=== PATIENT | female | born 1945 | race Caucasian/White ===

== ENCOUNTER 2025-04-24 15:33 | Emergency (ER) | payer MEDICARE, SELFPAY ==
[2025-04-24 15:51] VITALS: BP 144/35; PULSE 63; RESP 16; TEMP 36.5; O2SAT 100
--- NOTE | 2025-04-24 16:17 | ED_ITS ---
HPI - Extremity Problem General Chief complaint: Extremity Problem,Nontraumatic Stated complaint: Left Foot Pain Time Seen by Provider: 04/24/25 16:00 Source: patient and RN notes reviewed Mode of arrival: ambulatory Limitations: no limitations History of Present Illness HPI Narrative: 79-year-old female presents [facility] complaining of wounds to her left foot. Patient has a history of CABG, peripheral vascular disease, coronary artery disease. Patient says over the last last 3 months she is reported wounds present to her toes. Patient reports she has poor circulation to her left leg from previous surgeries. Patient reports worsening redness and swelling to her foot over the last 3 weeks and reports her toes becoming very painful. Patient denies any numbness or tingling, fevers, body aches, chills, or any other symptoms. Patient said she cannot bear weight on her left foot to the pain in her toes. Related Data Allergies Allergy/AdvReac Type Severity Reaction Status Date / Time Penicillins Allergy Intermediate Vomiting Verified 04/24/25 18:55 Sulfa (Sulfonamide Allergy Intermediate Vomiting Verified 04/24/25 18:55 Antibiotics) Review of Systems Review of Systems: CONSTITUTIONAL: Denies fever, chills, or sweats. EYES: Denies visual changes, redness, or discharge. ENT: Denies rhinorrhea, congestion, sore throat, or otalgia. CARDIOVASCULAR: Denies chest pain, palpitations, or edema. RESPIRATORY: Denies cough or dyspnea. GASTROINTESTINAL: Denies abdominal pain, nausea, vomiting, or diarrhea. GENITOURINARY: Denies dysuria or hematuria. SKIN: Denies rash or itching. Positive for wounds, foot swelling. MUSCULOSKELETAL: Denies back pain, joint pain, or myalgia. Positive for toe. NEUROLOGIC: Denies headache, numbness, or weakness. PSYCHIATRIC: Denies anxiety or depression. All other systems reviewed are negative, except as documented in HPI. PMFSH Comments At the time of my signature, I reviewed and agree with the nursing past medical, surgical, social, and family history. There is no relevant family history pertinent to the patient complaint. Exam Narrative: GENERAL: This is a well-nourished, well-developed adult, in no apparent distress. They are non ill-appearing, nontoxic appearing. HEAD: normocephalic, atraumatic. EYES: Sclera clear/white. Conjunctiva normal. Vision is grossly intact. Extraocular movements intact EARS: External ears normal, Hearing grossly intact. NOSE: External nose normal THROAT: Mucous membranes moist, NECK: Neck supple, CARDIOVASCULAR: Regular rate and rhythm RESPIRATORY: Respiratory rate normal, respiratory effort nonlabored, no respiratory distress SKIN: warm, Dry, intact with no suspicious lesions or rash, good texture and turgor. NEURO: awake, alert, and oriented to person, place and time. There were no obvious focal neurologic abnormalities. EXTREMITIES: Left foot: It Is erythematous, left pedal pulse is palpable and weak. Skin is not blanchable. Multiples sores present to the patient 2nd plantar toe in between her 2nd and 3rd toe. It appears scabbed, with exudate present. Toes are tender to palpate. Swelling is pitting. Erythema extending up the left ankle. Sensation intact. Patient able to wiggle her toes. Normal dorsiflexion and plantar flexion. Foot is cool. No cyanosis present. Course Course Emergency Course: Portions of this record may have been created with voice recognition software Level of Care: Express Care Visit Vital Signs Vital signs: Vital Signs Temperature 97.7 F 04/24/25 15:51 Pulse Rate 63 04/24/25 15:51 Respiratory Rate 16 04/24/25 15:51 Blood Pressure 144/35 H 04/24/25 15:51 Pulse Oximetry 100 04/24/25 15:51 Oxygen Delivery Room Air 04/24/25 15:51 Temperature 97.7 F 04/24/25 15:51 Pulse Rate 63 04/24/25 15:51 Respiratory Rate 16 04/24/25 15:51 Blood Pressure 144/35 H 04/24/25 15:51 Pulse Oximetry 100 04/24/25 15:51 Oxygen Delivery Room Air 04/24/25 15:51 Reviewed MDM - Extremity (Nontraumatic) MDM Narrative Medical decision making narrative: Patient has multiple open sores to her toes, weak pulse present the patient's left foot, redness is not blanchable, patient has been told in the past she will need amputation soon to her left leg. Given patient's symptoms, it is recommend the patient seek a higher level care and proceed immediately to the emergency department. Patient says she does not want to go to the hospital with said she will follow-up with her PCP. Patient has been informed about her condition including to but not limited to that her condition may worsen, lead to sepsis, lose blood flow to her lower leg leg, an amputation or loss of limb, permanent disability, or even . Patient has chosen to refuse further care. Risks of an incomplete evaluation and treatment were discussed with the patient, including potential for or permanent disability. Patient seems to understand these risks, but still desires to refuse further care. Patient recommended to follow up with PCP in the next possible interval. Specifically, patient was told they can return to the ED at any time to resume care. Go ahead and send a course of doxycycline to her pharmacy. Patient has the mental capacity make informed medical decisions for herself. Differential Diagnosis Differential diagnosis: Likely cellulitis and other (Osteomyelitis, diabetic foot ulcers, peripheral vascular disease.) Critical Care Time Critical Care Time Critical Care Time: No Discharge Plan Discharge Clinical Impression: Cellulitis, Open toe wound Patient Disposition: Left Against Medical Advice Condition: Stable Additional Instructions: You may go to the ER at any time on your own free will. Please go to the ER especially if condition is not improving in 24 hours, you developed worsening redness, swelling, pain, your foot becomes cold, blue, numb, unable to move your left foot, fevers, body aches, chills, confusion, nausea, vomiting, or any serious concerns. Take the doxycycline as directed. Wear sunscreen for going to be outside while taking doxycycline. Patient Language: Georgian Prescriptions: New doxycycline monohydrate 100 mg capsule 100 mg PO BID 7 Days Qty: 14 0RF Follow-up/Referrals: Marychuy,Pete Cornelius MD [Primary Care Provider, Unknown] Time of Disposition: 16:39
== END 2025-04-24 16:48 | disposition left against medical advice (07) ==
PROVIDERS: PCP Family Medicine
DX: L03.032 Cellulitis of left toe (principal); L03.116 Cellulitis of left lower limb; S91.105A Unspecified open wound of left lesser toe(s) without damage to nail, initial encounter; S91.302A Unspecified open wound, left foot, initial encounter; X58.XXXA Exposure to other specified factors, initial encounter; I73.9 Peripheral vascular disease, unspecified; I25.110 Atherosclerotic heart disease of native coronary artery with unstable angina pectoris; E78.00 Pure hypercholesterolemia, unspecified; J44.9 Chronic obstructive pulmonary disease, unspecified; F17.200 Nicotine dependence, unspecified, uncomplicated; M81.0 Age-related osteoporosis without current pathological fracture; Z95.5 Presence of coronary angioplasty implant and graft
CPT/HCPCS: 99203; G0463